=== PATIENT | female | born 1965 | race American Indian/Alaskan Native ===

== ENCOUNTER 2018-04-04 15:22 | Emergency (ER) | payer OTHER ==
[2018-04-04] MEDS ORDERED: TORADOL IM ONE (16:07)
--- NOTE | 2018-04-04 16:48 | Emergency Department Report ---
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 Pain was constant but gradually improved since taken an aspirin prior to arrival. Mild diaphoresis and shortness of br eath reported. Patient also states that she was feeling really hot with episode. Patient denies nausea, vomiting, calf tenderness, leg edema, recent trauma or heavy lifting. Right-sided parasternal chest pain worse with palpation. No shoulder pain worse with palpation and movement. Patient states he smokes cigarettes, she cannot recall if she has had a stress test, her mom of heart related issues in her 60s. - Related Data Previous Rx's Medication Instructions Recorded Last Taken Type HYDROcodone/APAP 5-325 [[place] 1 each PO Q6HR PRN #14 tablet 04/04/18 Unknown Rx 5/325] Ibuprofen [Motrin] 800 mg PO Q8HR PRN #30 tablet 04/04/18 Unknown Rx Allergies Allergy/AdvReac Type Severity Reaction Status Date / Time No Known Allergies Allergy Unverified 04/04/18 15:29 Heart Score - HEART Score History: Slightly suspicious EKG: Non-specific Age: 45-65 Risk factors: 1-2 risk factors Troponin: < normal limit HEART Score: 3 ED Review of Systems ROS: Stated complaint: CHEST PAIN Other details as noted in HPI Comment: All other systems reviewed and negative ED Past Medical Hx - Past Medical History Previous Medical History?: No - Surgical History Past Surgical History?: No - Social History Smoking Status: Never Smoker Substance Use Type: None - Medications Home Medications: Home Medications Medication Instructions Recorded Confirmed Last Taken Type HYDROcodone/APAP 5-325 [[place] 1 each PO Q6HR PRN #14 tablet 04/04/18 Unknown Rx 5/325] Ibuprofen [Motrin] 800 mg PO Q8HR PRN #30 tablet 04/04/18 Unknown Rx ED Physical Exam - General Limitations: No Limitations - Other Other exam information: General: No limitations, patient is alert in no acute distress Head exam: Atraumatic, normocephalic Eyes exam: Normal appearance ENT: Moist mucous membrane, normal oropharynx Neck exam: Normal inspection, full range of motion, no meningismus nontender Respiratory exam: Clear to auscultation bilateral, no wheezes, rales, crackles. Reproducible right parasternal chest wall tenderness Cardiovascular: Normal rate and rhythm, normal heart sounds Abdomen: Soft, nondistended, and nontender, with normal bowel sounds, no rebound, or guarding Extremity: Full range of motion normal inspection no deformity, no calf tenderness or edema Back: Normal Inspection, full range of motion, no tenderness Neurologic: Alert, oriented x3, cranial nerves intact, no motor or sensory deficit Psychiatric: normal affect, normal mood Skin: Warm, dry, intact ED Course Vital Signs 04/04/18 15:30 Temperature 97.7 F Pulse Rate 76 Respiratory 18 Rate Blood Pressure 130/91 O2 Sat by Pulse 100 Oximetry MARICHUY score - Marichuy Score Age > 65: (0) No Aspirin use within the Past 7 Days: (0) No 3 or more CAD Risk Factors: (0) No 2 or more Angina events in past 24 hrs: (0) No Known CAD with more than 50% Stenosis: (0) No Elevated Cardiac Markers: (0) No ST Deviation Greater than 0.5mm: (0) No MARICHUY Score: 0 ED Medical Decision Making - Lab Data Result diagrams: 04/04/18 16:32 04/04/18 16:32 Lab Results 04/04/18 04/04/18 04/04/18 Range/Units 16:32 16:32 16:32 WBC 5.1 (4.5-11.0) K/mm3 RBC 4.03 (3.65-5.03) M/mm3 Hgb 13.6 (10.1-14.3) gm/dl Hct 39.7 (30.3-42.9) % MCV 98 H (79-97) fl MCH 34 H (28-32) pg MCHC 34 (30-34) % RDW 13.7 (13.2-15.2) % Plt Count 233 (140-440) K/mm3 Lymph % (Auto) 51.0 H (13.4-35.0) % Hooker % (Auto) 6.9 (0.0-7.3) % Eos % (Auto) 2.1 (0.0-4.3) % Baso % (Auto) 0.4 (0.0-1.8) % Lymph # 2.6 (1.2-5.4) K/mm3 Hooker # 0.4 (0.0-0.8) K/mm3 Eos # 0.1 (0.0-0.4) K/mm3 Baso # 0.0 (0.0-0.1) K/mm3 Seg Neutrophils % 39.6 L (40.0-70.0) % Seg Neutrophils # 2.0 (1.8-7.7) K/mm3 D-Dimer 204.18 (0-234) ng/mlDDU Sodium 139 (137-145) mmol/L Potassium 3.9 (3.6-5.0) mmol/L Chloride 99.9 (98-107) mmol/L Carbon Dioxide 30 (22-30) mmol/L Anion Gap 13 mmol/L BUN 7 (7-17) mg/dL Creatinine 0.8 (0.7-1.2) mg/dL Estimated GFR > 60 ml/min BUN/Creatinine Ratio 9 % Glucose 75 (65-100) mg/dL Calcium 9.7 (8.4-10.2) mg/dL Troponin T < 0.010 (0.00-0.029) ng/mL - EKG Data -: EKG Interpreted by Me (?old anteroseptal infarct) EKG shows normal: sinus rhythm, axis (qrs 62), QRS complexes (qrsd 78), ST-T waves (no stemi) Rate: normal (72) - Radiology Data Radiology results: report reviewed FINAL REPORT EXAM: XR CHEST ROUTINE 2V HISTORY: right cp COMPARISON: None available. FINDINGS:: Frontal and lateral views of the chest obtained. Cardiac silhouette is within normal limits. No focal consolidation or effusion. No pneumothorax. Visualized bony thorax is grossly intact. IMPRESSION:: No acute findings. FINAL REPORT EXAM: XR SHOULDER 2+V LT HISTORY: shoulder pain COMPARISON: None available. FINDINGS: Three views of the left shoulder obtained. No acute fracture dislocation. [id number] osteophyte mild synovitis of the AC joint. Mild osteophyte of the humeral head. IMPRESSION: No acute bony findings. Degenerative changes. - Medical Decision Making Chest pain is reproducible by palpation and movement with unremarkable x-ray, EKG, and lab workup. I suspect musculoskeletal pain which could be provoked by turning the large wheel of a bus. Patient be treated symptomatically for pain and outpatient follow-up will be encouraged. Patient states she did not get any relief with Toradol but will be driving home so cannot get any additional medication. - Differential Diagnosis costochondritis, atypical chest pain, PE, AL, arthritis Critical Care Time: No Critical care attestation.: If time is entered above; I have spent that time in minutes in the direct care of this critically ill patient, excluding procedure time. ED Disposition Clinical Impression: Costochondritis, acute, Shoulder arthritis Shoulder sprain Qualifiers: Laterality: left Disposition: DC-01 TO HOME OR SELFCARE Is pt being admited?: No Does the pt Need Aspirin: No Condition: Stable Instructions: Costochondritis (ED), Shoulder Sprain (ED) Additional Instructions: Take the medication as prescribed. Follow up with your doctor or doctor/clinic. Return if symptoms worsen as indicated by your discharge instructions Prescriptions: HYDROcodone/APAP 5-325 [[place] 5/325] 1 each PO Q6HR PRN #14 tablet PRN Reason: Pain Ibuprofen [Motrin] 800 mg PO Q8HR PRN #30 tablet PRN Reason: Pain, Moderate (4-6) Referrals: IRON MERCEDES MD [Primary Care Provider] - 3-5 Days [facility] [Provider Group] - 3-5 Days Forms: Work/School Release Form(ED) Time of Disposition: 18:27
[2018-04-04 17:05] LABS: Basophils % (Auto) 0.4 % (0.0-1.8); Eosinophils # (Auto) 0.1 K/mm3 (0.0-0.4); Eosinophils % (Auto) 2.1 % (0.0-4.3); Hematocrit 39.7 % (30.3-42.9); Hemoglobin 13.6 gm/dl (10.1-14.3); Lymphocytes # (Auto) 2.6 K/mm3 (1.2-5.4); Mean Corpuscular HGB Conc 34 % (30-34); Mean Corpuscular Volume 98 fl (79-97); Monocytes # (Auto) 0.4 K/mm3 (0.0-0.8); Monocytes % (Auto) 6.9 % (0.0-7.3); Platelet Count 233 K/mm3 (140-440); Red Blood Count 4.03 M/mm3 (3.65-5.03); Red Cell Distribution Width 13.7 % (13.2-15.2)
--- NOTE | 2018-04-04 17:29 | XRay Report ---
FINAL REPORT EXAM: XR CHEST ROUTINE 2V HISTORY: right cp COMPARISON: None available. FINDINGS:: Frontal and lateral views of the chest obtained. Cardiac silhouette is within normal limi ts. No focal consolidation or effusion. No pneumothorax. Visualized bony thorax is grossly intact. IMPRESSION:: No acute findings.
--- NOTE | 2018-04-04 17:31 | XRay Report ---
FINAL REPORT EXAM: XR SHOULDER 2+V LT HISTORY: shoulder pain COMPARISON: None available. FINDINGS: Three views of the left shoulder obtained. No acute fracture dislocation. Ezxj-xl-zwlrupcy osteophyte mild synovitis of the AC joint. Mild osteophyte of the humeral head. IMPRESSION: No acute bony findings. Degenerative changes.
[2018-04-04 17:33] LABS: BUN/Creatinine Ratio 9; Blood Urea Nitrogen 7 mg/dL (7-17); Calcium 9.7 mg/dL (8.4-10.2); Hemolysis Index 2
[2018-04-05 14:18] VITALS: BP 130/91
== END 2018-04-04 18:46 | disposition home or self-care (01) ==
LOC: ED 15:22
DX: S43.402A Unspecified sprain of left shoulder joint, initial encounter (principal); M94.0 Chondrocostal junction syndrome [Tietze]; F17.200 Nicotine dependence, unspecified, uncomplicated; Z79.82 Long term (current) use of aspirin; V04.99XA Pedestrian with other conveyance injured in collision with heavy transport vehicle or bus, unspecified whether traffic or nontraffic accident, initial encounter; Y93.89 Activity, other specified; Y92.488 Other paved roadways as the place of occurrence of the external cause; Y99.8 Other external cause status
CPT/HCPCS: 36415; 71046; 73030; 80048; 84484; 85025; 85379; 93005; 93010; 96372; 99284; J1885

== ENCOUNTER 2018-04-25 15:27 | Emergency (ER) | payer OTHER ==
[2018-04-25 15:51] VITALS: BP 123/78
--- NOTE | 2018-04-25 15:51 | Emergency Department Report ---
Chief Complaint: Shoulder Injury Stated Complaint: SHOULDER PAIN Time Seen by Provider: 04/25/18 15:49 - HPI History of Present Illness: L SHOULDER PAIN 2ND VIST FOR SAME SEE XRAYS IN EMR NO NEW TRAUMA DID NOT FOLLOW UP RX NONE PMH NONE PSH NONE DENY CIG/ETOH/DRUGS MSE COMPLETED MSE screening note: Focused history and physical exam performed. Due to findings the following was ordered: ED Disposition for MSE Condition: Stable
--- NOTE | 2018-04-25 17:14 | Emergency Department Report ---
Upper Extremity - HPI Chief Complaint: Shoulder Injury Stated Complaint: SHOULDER PAIN Time Seen by Provider: 04/25/18 15:49 Upper Extremity: Left Shoulder (pain that has been ongoing and started back again 2 days ago.) Occurred When: 2 Days Mechanism: Unsure Severity: severe Symptoms: Yes Pain with Movement (8/10 left shoulder and pain radiating down to left hand), Yes Limited Range of Movement (left shoulder), No Deformity, No Numbness, No Weakness, No Swelling, No Bruising/Ecchymosis, No Laceration or Abrasion Other History: This is a 52-year-old female here for left shoulder pain. She was here on 04/04/2018 and had x-ray of left shoulder which showed degeneration. She said she did not get to follow-up with orthopedic doctor because she had to go to call. Her pain is 8/10 achy and radiating down her left shoulder to her hand. She reports that his heart for her to lift her left upper extremity. Pain is worse movement better with rest and she states that she has been taking [id number]-[id number] medication without any relief. Patient had x-ray on 04-21 that reflects degenerative changes but no mention of any fracture or dislocation. 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 She reports tingling going down her arm to her forearm but denies any numbness. She was placed in a sling last time she was here. She has requested a sling today. ED Review of Systems ROS: Stated complaint: SHOULDER PAIN Other details as noted in HPI Constitutional: denies: chills, fever Respiratory: denies: cough, shortness of breath, wheezing Cardiovascular: denies: chest pain, palpitations, edema, syncope Gastrointestinal: denies: nausea, vomiting Musculoskeletal: arthralgia. denies: back pain, joint swelling, myalgia Skin: denies: rash Neurological: paresthesias. denies: headache, numbness, abnormal gait, vertigo ED Past Medical Hx - Past Medical History Previous Medical History?: Yes Additional medical history: shoulder pain - Surgical History Past Surgical History?: No - Family History Family history: hypertension - Social History Smoking Status: Never Smoker Substance Use Type: None - Medications Home Medications: Home Medications Medication Instructions Recorded Confirmed Last Taken Type Acetaminophen/Codeine [Tylenol 1 tab PO Q6H PRN #14 tab 04/25/18 Unknown Rx /Codeine # 3 tab] Ibuprofen [Motrin] 800 mg PO Q8HR PRN #12 tablet 04/25/18 Unknown Rx Upper Extremity Exam - Exam General: Vital signs noted. No distress. Alert and acting appropriately. This is a 52-year-old female well-nourished well-developed in no acute distress. Head and Torso: No HEENT Abnormality, No Neck Tenderness, No Chest/Lungs Abnormality, No Abdominal Tenderness, No Back Tenderness Shoulder Exam: Yes Shoulder Tenderness (minimal tenderness to GHJ), Yes AC Joint Tenderness (without any swelling.), No Clavicle Tenderness, No Normal Range of Motion in Shoulder (limited range of motion to left shoulder due to reports of pain.), No Shoulder Deformity Arm Exam: No Arm/Humerus Tenderness, No Arm Deformity Forearm: No Forearm Tenderness, No Forearm Deformity, No Pain with Pronation, No Pain with Supination ( called 1 live ) Wrist: Yes Normal ROM in Wrist, No Wrist Tenderness, No Wrist Deformity, No Snuffbox Tenderness, No Pain with Axial Thumb Compression Hand: Yes Normal ROM in Digit(s), No Hand Tenderness, No Hand Deformity, No Digit Tenderness, No Digit(s) Deformity, No Tendon Dysfunction CMS Exam: Yes Normal Distal Pulses (+ bounding radial ulnar pulses), Yes Normal Capillary Refill (less than 2 seconds), Yes Normal Distal Sensation (patient will good color, sensation temperature and movement to extremities.), No Broken Skin ED Course Vital Signs 04/25/18 15:49 Temperature 97.8 F Pulse Rate 102 H Respiratory 16 Rate Blood Pressure 123/78 [Left] O2 Sat by Pulse 100 Oximetry - Reevaluation(s) Reevaluation #1: 04/25/18 17:29 Patient given Decadron 10 mg IM and Toradol 60 mg IM and emergency room for pain. She is also given - Orthopedic Splinting/Casting Injury #1 Side: left Upper Extremity Injury Location: shoulder Upper Extremity Immobilizer: sling/shoulder immobilize ED Medical Decision Making - Radiology Data Radiology results: report reviewed X-ray of left shoulder 2 view that was on 04/04/2018 dictated by radiologist and report reviewed by myself. Please see details below. Findings [facility] [address] [place] [address] XRay Report Signed Patient: SONIA BOSE MR#: [id number] : 1965 Acct:[id number] Age/Sex: 52 / F ADM Date: 04/04/18 Loc: ED Attending Dr: Ordering Physician: VIDAL RUBALCAVA MD Date of Service: 04/04/18 Procedure(s): XR shoulder 2+V LT Accession Number(s): [id number] cc: VIDAL RUBALCAVA MD Fluoro Time In Minutes: FINAL REPORT EXAM: XR SHOULDER 2+V LT HISTORY: shoulder pain COMPARISON: None available. FINDINGS: Three views of the left shoulder obtained. No acute fracture dislocation. [id number]-aa-wrsrtbet osteophyte mild synovitis of the AC joint. Mild osteophyte of the humeral head. IMPRESSION: No acute bony findings. Degenerative changes. Transcribed By: LMA Dictated By: YVAN NARAYANAN MD Electronically Authenticated By: YVAN NARAYANAN MD Signed Date/Time: 04/04/181730 DD/ 29 TD/TT: 04/04/181729 - Medical Decision Making This is a 52-year-old female here report that she has left shoulder pain this been ongoing but started again 2 days ago. She says she was here a few weeks ago and he did x-ray on her and she did not get follow-up with orthopedic doctor because she had an emergency. I reviewed x-ray from 2 weeks ago and it showed Three views of the left shoulder obtained. No acute fracture dislocation. Ghmx-pt-ohdnydjy osteophyte mild synovitis of the AC joint. Mild osteophyte of the humeral head. IMPRESSION: No acute bony findings. Degenerative changes. Patient was given Decadron and Toradol in the emergency room which relieved her pain some. I discussed with her that she is to follow-up with orthopedic doctor as previously informed. She voices understanding and please refer to procedure note for details and splinted. Patient discharged from the emergency room. The pains better a prescription for Tylenol 3, Motrin Critical care attestation.: If time is entered above; I have spent that time in minutes in the direct care of this critically ill patient, excluding procedure time. ED Disposition Clinical Impression: Synovitis Left shoulder pain Qualifiers: Chronicity: acute Qualified Code(s): M25.512 - Pain in left shoulder Strain of shoulder, left Qualifiers: Encounter type: initial encounter Qualified Code(s): S46.912A - Strain of unspecified muscle, fascia and tendon at shoulder and upper arm level, left arm, initial encounter Degenerative arthritis Qualifiers: Osteoarthritis location: shoulder Osteoarthritis type: unspecified Laterality: left Qualified Code(s): M19.012 - Primary osteoarthritis, left shoulder Disposition: - TO HOME OR SELFCARE Is pt being admited?: No Does the pt Need Aspirin: No Condition: Stable Instructions: Osteoarthritis (ED), RICE Therapy (ED), Rotator Cuff Injury (ED), Arthralgia (ED), Rotator Cuff Tendinitis (ED) Additional Instructions: Please follow up with orthopedic doctor as discussed in 2-3 days. He will need further examination and possible MRI of the left shoulder. Take Tylenol 3 for severe pain and Motrin for mild to moderate pain. Use shoulder sling as discussed See discharge instructions on your diagnoses You have inflammation to the synovial fluid and U shoulder joints and will need to get attention from orthopedic doctor and possible drainage of fluid. If he develops worsening symptoms to include restriction in movement its worsening, fever and/or chills, return to emergency room YESENIA Referrals: BRAD BEARD MD [Primary Care Provider] - 3-5 Days [facility] [Provider Group] - 3-5 Days CLIF CRISOSTOMO MD [Staff Physician] - 3-5 Days Forms: Work/School Release Form(ED)
[2018-04-25] MEDS ORDERED: DECADRON IM STA (17:15)
[2018-04-25] MEDS ORDERED: TORADOL IM ONE (17:15)
[2018-04-25] MEDS ORDERED: DECADRON ONE (17:32)
== END 2018-04-25 17:55 | disposition home or self-care (01) ==
LOC: ED 15:27
DX: S46.912A Strain of unspecified muscle, fascia and tendon at shoulder and upper arm level, left arm, initial encounter (principal); M19.012 Primary osteoarthritis, left shoulder; M65.9 Synovitis and tenosynovitis, unspecified; X58.XXXA Exposure to other specified factors, initial encounter; Y93.89 Activity, other specified; Y92.89 Other specified places as the place of occurrence of the external cause; Y99.8 Other external cause status
CPT/HCPCS: 96372; 99283; J1100; J1885

== ENCOUNTER 2020-03-13 15:02 | Emergency (ER) | payer SELFPAY ==
[2020-03-13 15:48] VITALS: BP 127/79
--- NOTE | 2020-03-13 15:57 | Event Note ---
ED Screening Note Date of service: 03/13/20 Time: 15:54 ED Screening Note: 54-year-old -[place] female presents to the emergency room stating that she has been feeling depressed. Patient denies any homicidal suicidal ideation. This initial assessment/diagnostic orders/clinical plan/treatment(s) is/are subject to change based on patients health status, clinical progression and re- assessment by fellow clinical providers in the ED. Further treatment and workup at subsequent clinical providers discretion. Patient/guardian urged not to elope from the ED as their condition may be serious if not clinically assessed and managed. Initial orders include:
== END 2020-03-13 22:15 | disposition left against medical advice (07) ==
LOC: ED 15:02
DX: F32.9 Major depressive disorder, single episode, unspecified (principal); Z53.21 Procedure and treatment not carried out due to patient leaving prior to being seen by health care provider